=== PATIENT | female | born 1960 | race Caucasian/White ===

== ENCOUNTER → 2017-04-29 | Outpatient (CLI) | payer BC | LOC: RAD 07:35 | DX: R78.1 Finding of opiate drug in blood (principal); M25.521 Pain in right elbow; R07.81 Pleurodynia ==

== ENCOUNTER 2020-11-26 07:07 | Emergency (ER) | payer BC ==
[2020-11-26 07:41] LABS: BASO # 0.1 (0.02-0.10); EOS # 0.2 (0.04-0.40); HEMATOCRIT 44.5 % (37.0-47.0); HEMOGLOBIN 15.2 g/dL (12.5-16.0); LYMPH# 3.3 (1.50-4.00); MEAN CELL VOLUME 92 fl (78-100); MEAN CORPUSCULAR HEMOGLOBIN 31 pg (27-31); MEAN CORPUSCULAR HGB CONC 34 g/dL (33-37); MEAN PLATELET VOLUME 9.2 fl (7.4-10.4); MONO # 1.1 (0.20-0.80); PLATELET COUNT 320 K/mm3 (130-400); RED BLOOD COUNT 4.86 M/mm3 (4.10-5.30); RED CELL DISTRIBUTION WIDTH 13.6 % (11.5-14.5); WHITE BLOOD COUNT 18.1 K/mm3 (4.8-10.8)
[2020-11-26 07:54] LABS: NEU # 13.4 (1.40-6.50)
[2020-11-26 07:56] LABS: ALBUMIN 4.4 g/dL (3.4-4.8); POTASSIUM 3.8 mmol/L (3.5-5.1)
[2020-11-26 07:57] LABS: SODIUM 135 mmol/L (136-145)
[2020-11-26 07:58] LABS: CALCIUM 9.4 mg/dL (8.3-10.5)
[2020-11-26 07:59] LABS: GLUCOSE 207 mg/dL (65-105); TOTAL PROTEIN 7.5 g/dL (6.2-8.1)
[2020-11-26 08:01] LABS: TOTAL BILIRUBIN 0.6 mg/dL (0.2-1.2)
[2020-11-26 08:04] LABS: AST-SGOT 21 U/L (5-34)
[2020-11-26 08:05] LABS: ALT/SGPT 23 U/L (0-55)
[2020-11-26 08:15] LABS: CARBON DIOXIDE 16 mmol/L (23-31); TROPONIN-I < 0.03 ng/mL (<0.030)
[2020-11-26 08:18] LABS: D-DIMER 1.56 mg/L FEU (0.15-0.50)
[2020-11-26] MEDS ORDERED: SUMATRIPTAN SUC50 M1 PO (11:00)
[2020-11-26] MEDS ORDERED: PHENERGAN 25 TA25 MG PO (11:00)
[2020-11-26 11:16] VITALS: BP 149/80
== END 2020-11-26 11:18 | disposition home or self-care (01) ==
LOC: ED 07:07
PROVIDERS: Physician Assistant
DX: G43.909 Migraine, unspecified, not intractable, without status migrainosus (principal); R06.00 Dyspnea, unspecified; F17.210 Nicotine dependence, cigarettes, uncomplicated; Z20.822 Contact with and (suspected) exposure to COVID-19; Z79.2 Long term (current) use of antibiotics; Z79.52 Long term (current) use of systemic steroids
CPT/HCPCS: J1200; J1885; J2405; J2550; J3030; J7030; Q9967

== ENCOUNTER 2020-11-30 08:28 | Emergency (ER) | payer BC ==
[~2020-11-30 08:28] MED LIST: PHENERGAN 25 TA25 MG PO; SUMATRIPTAN SUC50 M1 PO
[2020-11-30 09:33] LABS: HEMATOCRIT 47.8 % (37.0-47.0); HEMOGLOBIN 15.6 g/dL (12.5-16.0); MEAN CELL VOLUME 94 fl (78-100); MEAN CORPUSCULAR HEMOGLOBIN 31 pg (27-31); MEAN CORPUSCULAR HGB CONC 33 g/dL (33-37); MEAN PLATELET VOLUME 9.1 fl (7.4-10.4); PLATELET COUNT 231 K/mm3 (130-400); RED BLOOD COUNT 5.08 M/mm3 (4.10-5.30); RED CELL DISTRIBUTION WIDTH 13.7 % (11.5-14.5); WHITE BLOOD COUNT 6.9 K/mm3 (4.8-10.8)
[2020-11-30 09:41] LABS: ALBUMIN 4.4 g/dL (3.4-4.8)
[2020-11-30 09:42] LABS: CALCIUM 8.9 mg/dL (8.3-10.5)
[2020-11-30 09:44] LABS: TOTAL PROTEIN 7.6 g/dL (6.2-8.1)
[2020-11-30 09:45] LABS: TOTAL BILIRUBIN 0.3 mg/dL (0.2-1.2)
[2020-11-30 09:52] LABS: NEUTROPHILS 69 % (42-75)
[2020-11-30 09:53] LABS: LYMPHOCYTE 18 % (20-51); MONOCYTE 12 % (3-10); TEAR DROP CELLS 1+
[2020-11-30 13:00] VITALS: BP 132/68
== END 2020-11-30 12:40 | disposition home or self-care (01) ==
LOC: ED 08:28
PROVIDERS: Physician Assistant
DX: R51.9 Headache, unspecified (principal); Z20.822 Contact with and (suspected) exposure to COVID-19
CPT/HCPCS: J1200; J1885; J2405; J3030

== ENCOUNTER → 2021-12-16 | Outpatient (CLI) | payer OTHER ==
[2021-12-16 07:39] LABS: BASO # 0.04 K/mm3 (0.02-0.10); EOS # 0.12 K/mm3 (0.04-0.40); EOS % 1.5 % (1.0-5.0); HEMATOCRIT 46.7 % (37.0-47.0); HEMOGLOBIN 15.4 g/dL (12.5-16.0); LYMPH# 2.38 K/mm3 (1.50-4.00); MEAN CELL VOLUME 97 fl (78-100); MEAN CORPUSCULAR HEMOGLOBIN 32 pg (27-31); MEAN CORPUSCULAR HGB CONC 33 g/dL (33-37); MEAN PLATELET VOLUME 9.2 fl (7.4-10.4); MONO # 0.68 K/mm3 (0.20-0.80); NEU # 4.69 K/mm3 (1.40-6.50); PLATELET COUNT 282 K/mm3 (130-400); RED CELL DISTRIBUTION WIDTH 12.7 % (11.5-14.5); WHITE BLOOD COUNT 7.9 K/mm3 (4.8-10.8)
[2021-12-16 11:33] LABS: ALBUMIN 4.4 g/dL (3.4-4.8); POTASSIUM 4.3 mmol/L (3.5-5.1)
[2021-12-16 11:35] LABS: CALCIUM 9.8 mg/dL (8.3-10.5)
[2021-12-16 11:36] LABS: TOTAL PROTEIN 7.5 g/dL (6.2-8.1)
[2021-12-16 11:38] LABS: TOTAL BILIRUBIN 0.3 mg/dL (0.2-1.2)
== END ==
LOC: LAB 07:16
PROVIDERS: Physician Assistant
DX: Z00.00 Encounter for general adult medical examination without abnormal findings (principal); Z13.29 Encounter for screening for other suspected endocrine disorder; M25.511 Pain in right shoulder

== ENCOUNTER → 2022-02-10 | Day surgery (SDC) | payer OTHER | END | disposition home or self-care (01) | LOC: MSO 06:52 | DX: Z12.11 Encounter for screening for malignant neoplasm of colon (principal); D12.5 Benign neoplasm of sigmoid colon; K63.5 Polyp of colon; F17.210 Nicotine dependence, cigarettes, uncomplicated | CPT/HCPCS: 00811; J2704; J7120 ==